=== PATIENT | male | born 1975 | race Caucasian/White ===

== ENCOUNTER 2017-02-07 10:57 | Outpatient (CLI) | payer BC ==
[2017-02-07 12:12] LABS: BASOPHILS % (AUTO) 0.6 % (0.0-2.0); EOSINOPHILS # (AUTO) 0.2 /CMM (0.0-0.7); EOSINOPHILS % (AUTO) 3.3 % (0.0-6.0); HEMATOCRIT 46 % (39-51); HEMOGLOBIN 15.1 g/dL (13.5-17.5); LYMPHOCYTES # (AUTO) 2.7 /CMM (0.8-4.8); LYMPHOCYTES % (AUTO) 48.3 % (20.0-44.0); MEAN CORPUSCULAR HEMOGLOBIN 27 PG (26.0-33.0); MEAN CORPUSCULAR HGB CONC 33 g/dl (31.0-36.0); MEAN CORPUSCULAR VOLUME 84 fL (80-96); MONOCYTES # (AUTO) 0.5 /CMM (0.1-1.30); MONOCYTES % (AUTO) 8.1 % (2.0-12.0); NEUTROPHILS # (AUTO) 2.2 /CMM (1.8-8.9); NEUTROPHILS % (AUTO) 39.7 % (43.0-81.0); PLATELET COUNT (AUTO) 182 /CMM (150-450); RDW COEFFICIENT OF VARIATION 13.5 (11.5-15.0); WHITE BLOOD COUNT (AUTO) 5.6 K/uL (4.3-11.0)
[2017-02-07 12:36] LABS: ALBUMIN 4.1 g/dL (3.4-5.0); BILIRUBIN,TOTAL 0.7 mg/dL (0.2-1.0); CALCIUM, SERUM 8.9 mg/dL (8.5-10.1); CREATININE 0.9 mg/dL (0.6-1.3); POTASSIUM 4.4 mmol/L (3.5-5.1); TOTAL PROTEIN, SERUM 7.6 g/dL (6.4-8.2)
[2017-02-07 12:41] LABS: THYROID STIMULATING HORMONE 1.328 uIU/mL (0.358-3.74)
[2017-02-07 13:54] LABS: APPEARANCE,URINE CLEAR (CLEAR); BILIRUBIN,URINE NEGATIVE (NEGATIVE); BLOOD, URINE NEGATIVE Ery/uL (NEGATIVE); COLOR,URINE DARK YELLO (YELLOW); KETONES,URINE NEGATIVE (NEGATIVE); LEUKOCYTE ESTERASE ,URINE NEGATIVE (NEGATIVE); NITRITE, URINE NEGATIVE (NEGATIVE); PROTEIN,URINE NEGATIVE (NEGATIVE); UGLUCOSE NEGATIVE (NEGATIVE); UROBILINOGEN,URINE 0.2 EU/dL (0.2)
== END 2017-02-07 23:59 | disposition home or self-care (01) ==
LOC: LAB 10:57
PROVIDERS: ATTEND Internal Medicine
DX: Z00.00 Encounter for general adult medical examination without abnormal findings (principal)
CPT/HCPCS: 36415; 80053-TC; 80061-TC; 81000-TC; 84443-TC; 85025-TC

== ENCOUNTER 2018-06-29 09:42 | Outpatient (CLI) | payer BC ==
[2018-06-29 10:54] LABS: BASOPHILS % (AUTO) 0.6 % (0.0-2.0); EOSINOPHILS % (AUTO) 2.3 % (0.0-6.0); HEMATOCRIT 47 % (39-51); HEMOGLOBIN 15.6 g/dL (13.5-17.5); LYMPHOCYTES # (AUTO) 2.7 /CMM (0.8-4.8); LYMPHOCYTES % (AUTO) 47.9 % (20.0-44.0); MEAN CORPUSCULAR HEMOGLOBIN 28 PG (26.0-33.0); MEAN CORPUSCULAR HGB CONC 33 g/dl (31.0-36.0); MEAN CORPUSCULAR VOLUME 85 fL (80-96); MONOCYTES # (AUTO) 0.5 /CMM (0.1-1.30); MONOCYTES % (AUTO) 8.1 % (2.0-12.0); NEUTROPHILS # (AUTO) 2.3 /CMM (1.8-8.9); NEUTROPHILS % (AUTO) 41.1 % (43.0-81.0); PLATELET COUNT (AUTO) 195 /CMM (150-450); RDW COEFFICIENT OF VARIATION 12.5 (11.5-15.0); RED BLOOD CELL COUNT(AUTO) 5.55 MIL/uL (4.5-6.0); WHITE BLOOD COUNT (AUTO) 5.6 K/uL (4.3-11.0)
[2018-06-29 11:18] LABS: URIC ACID 6.6 mg/dL (2.6-7.2)
[2018-06-29 12:18] LABS: BILIRUBIN,TOTAL 0.6 mg/dL (0.2-1.0); CALCIUM, SERUM 8.8 mg/dL (8.5-10.1); CREATININE 0.9 mg/dL (0.6-1.3); TOTAL PROTEIN, SERUM 7.5 g/dL (6.4-8.2)
[2018-07-01 13:11] LABS: CALCITRIOL VIT D,1, 25 DIHYDRO 68.5 pg/mL (19.9-79.3)
== END 2018-06-29 23:59 | disposition home or self-care (01) ==
LOC: RAD 09:42
PROVIDERS: ATTEND Internal Medicine
DX: M17.11 Unilateral primary osteoarthritis, right knee (principal); N52.9 Male erectile dysfunction, unspecified; E78.5 Hyperlipidemia, unspecified
CPT/HCPCS: 36415; 73562; 80053-TC; 80061-TC; 82652; 84403; 84550-TC; 85025-TC

== ENCOUNTER 2018-07-31 09:37 | Outpatient (CLI) | payer BC | END 2018-07-31 23:59 | disposition home or self-care (01) | LOC: MRI 09:37 | PROVIDERS: ATTEND Internal Medicine | DX: S83.511A Sprain of anterior cruciate ligament of right knee, initial encounter (principal); S83.241A Other tear of medial meniscus, current injury, right knee, initial encounter; M25.461 Effusion, right knee; M65.861 Other synovitis and tenosynovitis, right lower leg; M71.21 Synovial cyst of popliteal space [Baker], right knee; M21.161 Varus deformity, not elsewhere classified, right knee; R60.0 Localized edema; X58.XXXA Exposure to other specified factors, initial encounter; Y93.89 Activity, other specified; Y92.89 Other specified places as the place of occurrence of the external cause; Y99.8 Other external cause status | CPT/HCPCS: 73721-TC ==

== ENCOUNTER 2019-05-28 10:41 | Outpatient (CLI) | payer BC ==
[2019-05-28 11:14] LABS: BASOPHILS % (AUTO) 0.6 % (0.0-2.0); EOSINOPHILS % (AUTO) 2.6 % (0.0-6.0); HEMATOCRIT 47 % (39-51); HEMOGLOBIN 15.8 g/dL (13.5-17.5); LYMPHOCYTES # (AUTO) 2.7 /CMM (0.8-4.8); LYMPHOCYTES % (AUTO) 48.7 % (20.0-44.0); MEAN CORPUSCULAR HGB CONC 34 g/dl (31.0-36.0); MEAN CORPUSCULAR VOLUME 85 fL (80-96); MONOCYTES # (AUTO) 0.5 /CMM (0.1-1.30); MONOCYTES % (AUTO) 8.2 % (2.0-12.0); NEUTROPHILS # (AUTO) 2.2 /CMM (1.8-8.9); NEUTROPHILS % (AUTO) 39.9 % (43.0-81.0); PLATELET COUNT (AUTO) 181 /CMM (150-450); WHITE BLOOD COUNT (AUTO) 5.6 K/uL (4.3-11.0)
[2019-05-28 11:30] LABS: APPEARANCE,URINE CLEAR (CLEAR); BILIRUBIN,URINE NEGATIVE (NEGATIVE); BLOOD, URINE NEGATIVE Ery/uL (NEGATIVE); COLOR,URINE YELLOW (YELLOW); KETONES,URINE NEGATIVE (NEGATIVE); LEUKOCYTE ESTERASE ,URINE NEGATIVE (NEGATIVE); NITRITE, URINE NEGATIVE (NEGATIVE); PH,URINE 5.5 (5.0-8.0); PROTEIN,URINE NEGATIVE (NEGATIVE); UGLUCOSE NEGATIVE (NEGATIVE); UROBILINOGEN,URINE 0.2 EU/dL (0.2)
[2019-05-28 11:45] LABS: CHOLESTEROL 176 mg/dL (<200); HDL CHOLESTEROL 36 mg/dL (40-60); LDL 130 mg/dL (0-99); THYROID STIMULATING HORMONE 1.598 uIU/mL (0.358-3.74); TRIGLYCERIDES 60 mg/dL (30-150)
[2019-05-28 11:46] LABS: C-REACTIVE PROTEIN < 0.2 mg/dL (0.0-0.9)
[2019-05-28 12:08] LABS: ALANINE AMINOTRANSFERASE 34 U/L (12-78); ALBUMIN 4.1 g/dL (3.4-5.0); ALKALINE PHOSPHATASE 104 U/L (46-116); ASPARTATE AMINOTRANSFERASE 12 U/L (15-37); BILIRUBIN,TOTAL 0.3 mg/dL (0.2-1.0); CALCIUM, SERUM 9.1 mg/dL (8.5-10.1); CARBON DIOXIDE 22 mmol/L (21-32); CHLORIDE 107 mmol/L (98-107); GLUCOSE 101 mg/dL (74-106); MAGNESIUM 2.1 mg/dL (1.8-2.4); POTASSIUM 4.3 mmol/L (3.5-5.1); SODIUM SERUM 143 mmol/L (136-145); TOTAL PROTEIN, SERUM 7.8 g/dL (6.4-8.2); UREA NITROGEN, BLOOD 16 mg/dL (7-18)
== END 2019-05-28 23:59 | disposition home or self-care (01) ==
LOC: LAB 10:41
DX: Z00.00 Encounter for general adult medical examination without abnormal findings (principal); E78.5 Hyperlipidemia, unspecified
CPT/HCPCS: 36415; 80053-TC; 80061-TC; 81000-TC; 82306; 83735-TC; 84439-TC; 84443-TC; 85025-TC; 85652-TC; 86140-TC

== ENCOUNTER 2019-06-15 10:00 | Outpatient (CLI) | payer BC | END 2019-06-15 23:59 | disposition home or self-care (01) | LOC: MRI 10:00 | PROVIDERS: ATTEND Student in an Organized Health Care Education/Training Program | DX: S83.511D Sprain of anterior cruciate ligament of right knee, subsequent encounter (principal); S83.241D Other tear of medial meniscus, current injury, right knee, subsequent encounter; M17.11 Unilateral primary osteoarthritis, right knee; M76.891 Other specified enthesopathies of right lower limb, excluding foot; M25.461 Effusion, right knee; M65.88 Other synovitis and tenosynovitis, other site; X58.XXXD Exposure to other specified factors, subsequent encounter | CPT/HCPCS: 73721-TC ==

== ENCOUNTER 2020-07-31 23:05 | Emergency (ER) | payer BC ==
[~2020-07-31] VITALS: Ht 175.3 cm; Wt 95.3 kg
[2020-07-31 23:09] VITALS: BP 121/75
== END 2020-07-31 23:44 | disposition home or self-care (01) ==
LOC: ER 23:07
DX: R05 Cough (principal); Z20.828 Contact with and (suspected) exposure to other viral communicable diseases
CPT/HCPCS: 99283; C9803; U0003

== ENCOUNTER 2020-09-19 10:56 | Outpatient (CLI) | payer BC ==
[2020-09-19 11:54] LABS: BILIRUBIN,URINE NEGATIVE (NEGATIVE); BLOOD, URINE NEGATIVE Ery/uL (NEGATIVE); COLOR,URINE YELLOW (YELLOW); LEUKOCYTE ESTERASE ,URINE NEGATIVE (NEGATIVE); NITRITE, URINE NEGATIVE (NEGATIVE); PH,URINE 5.5 (5.0-8.0); PROTEIN,URINE NEGATIVE (NEGATIVE); UGLUCOSE NEGATIVE (NEGATIVE); UROBILINOGEN,URINE 0.2 EU/dL (0.2)
[2020-09-19 12:02] LABS: BASOPHILS % (AUTO) 0.5 % (0.0-2.0); EOSINOPHILS % (AUTO) 1.6 % (0.0-6.0); HEMATOCRIT 48 % (39-51); HEMOGLOBIN 16.1 g/dL (13.5-17.5); LYMPHOCYTES # (AUTO) 2.9 /CMM (0.8-4.8); LYMPHOCYTES % (AUTO) 42.8 % (20.0-44.0); MEAN CORPUSCULAR HGB CONC 33 g/dl (31.0-36.0); MEAN CORPUSCULAR VOLUME 83 fL (80-96); MONOCYTES # (AUTO) 0.5 /CMM (0.1-1.30); MONOCYTES % (AUTO) 6.8 % (2.0-12.0); NEUTROPHILS # (AUTO) 3.3 /CMM (1.8-8.9); NEUTROPHILS % (AUTO) 48.3 % (43.0-81.0); PLATELET COUNT (AUTO) 195 /CMM (150-450); WHITE BLOOD COUNT (AUTO) 6.9 K/uL (4.3-11.0)
[2020-09-19 12:10] LABS: ALBUMIN 4.2 g/dL (3.4-5.0); BILIRUBIN,TOTAL 0.5 mg/dL (0.2-1.0); CALCIUM, SERUM 9.1 mg/dL (8.5-10.1); CREATININE 0.9 mg/dL (0.6-1.3); MAGNESIUM 2.3 mg/dL (1.8-2.4); POTASSIUM 3.9 mmol/L (3.5-5.1); TOTAL PROTEIN, SERUM 8.3 g/dL (6.4-8.2)
[2020-09-19 12:14] LABS: C-REACTIVE PROTEIN 0.9 mg/dL (0.0-0.9); THYROID STIMULATING HORMONE 2.444 uIU/mL (0.358-3.74)
[2020-09-20 08:12] LABS: LUTEINIZING HORMONE 2.4 mIU/mL (1.7-8.6)
== END 2020-09-19 23:59 | disposition home or self-care (01) ==
LOC: RAD 10:56
DX: E78.5 Hyperlipidemia, unspecified (principal); R68.82 Decreased libido; Z00.00 Encounter for general adult medical examination without abnormal findings
CPT/HCPCS: 36415; 71046; 80053-TC; 80061-TC; 82306; 83002; 83735-TC; 84402; 84403; 84443-TC; 85025-TC; 85652-TC; 86140-TC

== ENCOUNTER 2021-05-15 04:05 | Emergency (ER) | payer BC ==
[~2021-05-15] VITALS: Ht 180.3 cm; Wt 98.0 kg
--- NOTE | 2021-05-15 04:11 | NUR ---
PRESENTED TO THE ER FOR C/O HIGH FEVER, WEAKNESS, DRY COUGH AND DIARRHEA X 5 DAYS. REPORTED HAS BEEN ALTERNATING MOTRIN AND TYLENOL FOR TO CONTROL FEVER. 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 NO SOB. AMBULATORY TO BED 5 ER, PRECAUTION ISOLATION IMPLEMENTED. PLACED ON A MONITOR. WILL CONT TO MONITOR
[2021-05-15 04:46] LABS: BASOPHILS # (AUTO) 0.1 K/uL (0.0-0.2); BASOPHILS % (AUTO) 0.5 % (0.0-2.0); EOSINOPHILS % (AUTO) 0.3 % (0.0-6.0); HEMATOCRIT 44 % (39-51); HEMOGLOBIN 14.7 g/dL (13.5-17.5); LYMPHOCYTES # (AUTO) 1.5 K/uL (0.8-4.8); LYMPHOCYTES % (AUTO) 11.3 % (20.0-44.0); MEAN CORPUSCULAR HGB CONC 34 g/dl (31.0-36.0); MEAN CORPUSCULAR VOLUME 84 fL (80-96); MONOCYTES # (AUTO) 1.2 K/uL (0.1-1.30); NEUTROPHILS # (AUTO) 10.5 K/uL (1.8-8.9); NEUTROPHILS % (AUTO) 78.9 % (43.0-81.0); PLATELET COUNT (AUTO) 132 K/uL (150-450); RED BLOOD CELL COUNT(AUTO) 5.23 MIL/uL (4.5-6.0); WHITE BLOOD COUNT (AUTO) 13.3 K/uL (4.3-11.0)
--- NOTE | 2021-05-15 04:54 | NUR ---
RAD AT BED SIDE
[2021-05-15 04:57] LABS: CALCIUM, SERUM 8.5 mg/dL (8.5-10.1); POTASSIUM 3.6 mmol/L (3.5-5.1)
[2021-05-15 05:03] LABS: ALBUMIN 2.8 g/dL (3.4-5.0); BILIRUBIN,DIRECT 0.1 mg/dL (0.0-0.2); BILIRUBIN,TOTAL 0.3 mg/dL (0.2-1.0); TOTAL PROTEIN, SERUM 7.5 g/dL (6.4-8.2)
[2021-05-15 05:21] LABS: BAND % (MANUAL) 3 % (0.0-5.0); NEUTROPHILS % (MANUAL) 73 (42-76)
[2021-05-15 05:22] LABS: BASOPHILS % (MANUAL) 0 % (0.0-2.0); EOSINOPHILS % (MANUAL) 1 % (0-4); LYMPHOCYTES % (MANUAL) 10 % (16-48); MONOCYTES % (MANUAL) 10 % (0-11.0)
[2021-05-15] MEDS ORDERED: CEFTRIAXONE 1GM BAG (ER ONLY) 50 ML IV ONE (05:29)
[2021-05-15] MEDS ORDERED: AZITHROMYCIN 250 MG TABLET ONE (05:30)
[2021-05-15] MEDS ORDERED: CEFTRIAXONE 1GM BAG (ER ONLY) 1 GM/50 ML PIGGYBACK IV ONE (05:30)
[2021-05-15] MEDS ORDERED: AZITHROMYCIN 250 MG TABLET PO ONE (05:30)
[2021-05-15] MEDS ORDERED: AZIT250T13 PO (06:00)
--- NOTE | 2021-05-15 07:12 | NUR ---
PT IS MEDICALLY STABLE FOR D/C PER MD. IV removed. Catheter intact and site benign. Pressure and 4x4 applied to site. No bleeding noted.Patient discharged to home in stable condition. Rx and Written and verbal after care instructions given. Patient verbalizes understanding of instruction.
[2021-05-15 07:13] VITALS: BP 134/69
== END 2021-05-15 07:14 | disposition home or self-care (01) ==
LOC: ER 04:06
DX: J18.9 Pneumonia, unspecified organism (principal); Z20.822 Contact with and (suspected) exposure to COVID-19
CPT/HCPCS: 36415; 71045; 80048; 80076; 85007; 85025; 87426; 96365; 99291; J0696; U0003; C9803

== ENCOUNTER 2021-06-17 05:29 | Emergency (ER) | payer BC ==
[~2021-06-17] VITALS: Ht 180.3 cm; Wt 97.5 kg
[~2021-06-17 05:29] MED LIST: AZIT250T13 PO
[2021-06-17] MEDS ORDERED: ONDANSETRON HCL/PF 4 MG/2 ML VIAL ONE (05:35)
[2021-06-17] MEDS ORDERED: KETOROLAC TROMETHAMINE INJ 30 MG/ML VIAL ONE (05:35)
--- NOTE | 2021-06-17 05:38 | NUR ---
PT BIBWIFE C/O LLQ ABD PAIN AND NAUSEA X3O MIN TOP TRIMMER. PT AAOX4 BREATHING EVENLY AND UNLABORED. PT ATTACHED TO MONITOR AND POX. PT SKIN IS WARM AND DRY. PT GIVEN BLANKET AND CALL LIGHT WITHIN REACH
[2021-06-17 05:45] LABS: BASOPHILS % (AUTO) 0.6 % (0.0-2.0); EOSINOPHILS % (AUTO) 4.1 % (0.0-6.0); HEMATOCRIT 45 % (39-51); LYMPHOCYTES # (AUTO) 4.7 K/uL (0.8-4.8); LYMPHOCYTES % (AUTO) 56.5 % (20.0-44.0); MEAN CORPUSCULAR HGB CONC 34 g/dl (31.0-36.0); MEAN CORPUSCULAR VOLUME 84 fL (80-96); MONOCYTES # (AUTO) 0.5 K/uL (0.1-1.30); MONOCYTES % (AUTO) 5.7 % (2.0-12.0); NEUTROPHILS # (AUTO) 2.7 K/uL (1.8-8.9); NEUTROPHILS % (AUTO) 33.1 % (43.0-81.0); PLATELET COUNT (AUTO) 214 K/uL (150-450); RED BLOOD CELL COUNT(AUTO) 5.29 MIL/uL (4.5-6.0); WHITE BLOOD COUNT (AUTO) 8.3 K/uL (4.3-11.0)
--- NOTE | 2021-06-17 05:47 | NUR ---
PT LEFT FOR CT
[2021-06-17 05:53] LABS: CALCIUM, SERUM 9.2 mg/dL (8.5-10.1); CREATININE 0.9 mg/dL (0.6-1.3); POTASSIUM 3.9 mmol/L (3.5-5.1)
[2021-06-17 05:59] LABS: BILIRUBIN,DIRECT 0.1 mg/dL (0.0-0.2); BILIRUBIN,TOTAL 0.2 mg/dL (0.2-1.0); TOTAL PROTEIN, SERUM 7.7 g/dL (6.4-8.2)
[2021-06-17] MEDS ORDERED: ONDANSETRON HCL/PF 4 MG/2 ML VIAL IVP ONE (06:00)
[2021-06-17] MEDS ORDERED: IV NS 0.9% 1,000 ML BAG IV ONE (06:00)
[2021-06-17] MEDS ORDERED: KETOROLAC TROMETHAMINE INJ 30 MG/ML VIAL IV ONE (06:00)
[2021-06-17] MEDS ORDERED: MORPHINE SULFATE INJ 4 MG/ML DISP.SYRIN ONE (06:18)
--- NOTE | 2021-06-17 06:18 | NUR ---
MD VERBAL ORDER 4MG MORPHINE IV
[2021-06-17] MEDS ORDERED: MORPHINE SULFATE INJ 2 MG/ML DISP.SYRIN IV ONE (06:30)
[2021-06-17 06:50] LABS: BASOPHILS % (MANUAL) 2 % (0.0-2.0); EOSINOPHILS % (MANUAL) 4 % (0-4); LYMPHOCYTES % (MANUAL) 44 % (16-48); MONOCYTES % (MANUAL) 8 % (0-11.0); NEUTROPHILS % (MANUAL) 32 (42-76); REACTIVE LYMPHOCYTES 10 % (0-0)
--- NOTE | 2021-06-17 06:57 | NUR ---
called fredy to have image read
[2021-06-17 07:25] LABS: BILIRUBIN,URINE NEGATIVE (NEGATIVE); COLOR,URINE YELLOW (YELLOW); LEUKOCYTE ESTERASE ,URINE NEGATIVE (NEGATIVE); NITRITE, URINE NEGATIVE (NEGATIVE); PH,URINE 5.5 (5.0-8.0); PROTEIN,URINE NEGATIVE (NEGATIVE); UGLUCOSE NEGATIVE (NEGATIVE); UROBILINOGEN,URINE 0.2 EU/dL (0.2)
--- NOTE | 2021-06-17 07:27 | NUR ---
ASSESSED PT ON BED AWAKE AND ALERT. NOT IN RESPIRATORY DISTRESS, V/S STABLE, KEPT RESTED AND COMFORTABLE. WILL CONTINUE TO MONITOR.
[2021-06-17] MEDS ORDERED: OXYC5CAP18 PO (07:29)
[2021-06-17 07:37] VITALS: BP 122/64
--- NOTE | 2021-06-17 07:37 | NUR ---
IV removed. Catheter intact and site benign. Pressure and 4x4 applied to site. No bleeding noted. Patient discharged to home in stable condition. Written and verbal after care instructions given. Patient verbalizes understanding of instruction.
[2021-06-17 07:45] LABS: BACTERIA,URINE Few /HPF (None Seen); CALCIUM OXALATE CRYSTALS,UR Few /HPF (None Seen); RBC,URINE 21-50 /HPF (0-2); SQUAMOUS EPITHELIAL CELL,UR Few /HPF (None Seen); WBC,URINE 0-2 /HPF (0-3)
== END 2021-06-17 07:38 | disposition home or self-care (01) ==
LOC: ER 05:31
DX: N20.0 Calculus of kidney (principal); Z98.890 Other specified postprocedural states; Z79.899 Other long term (current) drug therapy
CPT/HCPCS: 36415; 74176; 80048; 80076; 81001; 83690; 85007; 85025; 96361; 96374; 96375; 99284; J1885; J2270; J2405; J7030

== ENCOUNTER 2021-08-14 12:09 | Outpatient (CLI) | payer BC ==
[~2021-08-14 12:09] MED LIST changes: +OXYC5CAP18 PO
== END 2021-08-14 23:59 | disposition home or self-care (01) ==
LOC: MRI 12:09
PROVIDERS: ATTEND Internal Medicine
DX: M47.812 Spondylosis without myelopathy or radiculopathy, cervical region (principal); M50.21 Other cervical disc displacement, high cervical region; M48.02 Spinal stenosis, cervical region; M43.12 Spondylolisthesis, cervical region; M25.78 Osteophyte, vertebrae
CPT/HCPCS: 72141-TC

== ENCOUNTER 2021-08-14 15:17 | Emergency (ER) | payer BC, OTHER ==
[~2021-08-14] VITALS: Ht 180.3 cm; Wt 90.7 kg
[2021-08-14 15:20] VITALS: BP 131/85
[2021-08-14] MEDS ORDERED: MORPHINE SULFATE INJ 4 MG/ML DISP.SYRIN ONE (15:30)
[2021-08-14] MEDS: MORPHINE SULFATE INJ 2 MG/ML DISP.SYRIN IM ONE (15:30)
--- NOTE | 2021-08-14 16:08 | NUR ---
Patient discharged to home in stable condition. Written and verbal after care instructions given. Patient verbalizes understanding of instruction.
== END 2021-08-14 16:08 | disposition home or self-care (01) ==
LOC: ER 15:21
DX: M54.2 Cervicalgia (principal); M25.511 Pain in right shoulder; G89.29 Other chronic pain; Z98.890 Other specified postprocedural states
CPT/HCPCS: 96372; 99283; J2270

== ENCOUNTER 2021-09-05 03:14 | Emergency (ER) | payer BC, OTHER ==
[~2021-09-05] VITALS: Ht 180.3 cm; Wt 94.8 kg
--- NOTE | 2021-09-05 03:20 | NUR ---
PT AAOX4. BIBSELF C/O COUGH, FEVER, AND WEAKNESS X 6 DAYS. PLACED IN BED 5 ON CONCRETE PAVING MACHINE OPERATOR AND PULSE OX. AWAITING ER MD FOR EVAL AND ORDERS.
[2021-09-05] MEDS ORDERED: IV NS 0.9% 1,000 ML IV ONE (03:30)
[2021-09-05 03:49] LABS: BASOPHILS % (AUTO) 0.2 % (0.0-2.0); EOSINOPHILS % (AUTO) 0.1 % (0.0-6.0); HEMATOCRIT 46 % (39-51); HEMOGLOBIN 15.3 g/dL (13.5-17.5); LYMPHOCYTES # (AUTO) 1.3 K/uL (0.8-4.8); LYMPHOCYTES % (AUTO) 24.6 % (20.0-44.0); MEAN CORPUSCULAR HGB CONC 34 g/dl (31.0-36.0); MEAN CORPUSCULAR VOLUME 84 fL (80-96); MONOCYTES # (AUTO) 0.6 K/uL (0.1-1.30); MONOCYTES % (AUTO) 12.6 % (2.0-12.0); NEUTROPHILS # (AUTO) 3.2 K/uL (1.8-8.9); NEUTROPHILS % (AUTO) 62.5 % (43.0-81.0); PLATELET COUNT (AUTO) 117 K/uL (150-450); RED BLOOD CELL COUNT(AUTO) 5.48 MIL/uL (4.5-6.0); WHITE BLOOD COUNT (AUTO) 5.2 K/uL (4.3-11.0)
[2021-09-05] MEDS ORDERED: DEXAMETHASONE SOD PHOSPHATE 10 MG/ML VIAL ONE (04:18)
[2021-09-05] MEDS ORDERED: DEXAMETHASONE SOD PHOSPHATE 6 MG in IV D5W 50 ML IV ONE (04:30)
--- NOTE | 2021-09-05 05:40 | NUR ---
REC'D POSITIVE RESULT FOR RAPID COVID. MADE AWARE
[2021-09-05] MEDS ORDERED: DEXA6TAB PO (05:51)
[2021-09-05 05:57] LABS: BILIRUBIN,TOTAL 0.3 mg/dL (0.2-1.0); CALCIUM, SERUM 8.2 mg/dL (8.5-10.1); CREATININE 0.9 mg/dL (0.6-1.3); POTASSIUM 3.8 mmol/L (3.5-5.1); TOTAL PROTEIN, SERUM 7.2 g/dL (6.4-8.2)
[2021-09-05] MEDS ORDERED: KETOROLAC TROMETHAMINE INJ 30 MG/ML VIAL IV ONE (06:00)
[2021-09-05] MEDS ORDERED: KETOROLAC TROMETHAMINE INJ 30 MG/ML VIAL ONE (06:04)
--- NOTE | 2021-09-05 06:48 | NUR ---
Patient discharged to home in stable condition. Written and verbal after care instructions given as well as prescription. Patient verbalizes understanding of instructions. IV line discontinued, gentle pressure applied to site without complication. All V/S stable at discharge.
[2021-09-05 06:53] VITALS: BP 131/84
== END 2021-09-05 06:53 | disposition home or self-care (01) ==
LOC: ER 03:28
DX: U07.1 COVID-19 (principal); J12.82 Pneumonia due to coronavirus disease 2019
CPT/HCPCS: 36415; 71045; 80053; 83605; 83880; 85025; 87040 ×2; 87426; 87804; 96361; 96374; 96375; 99284; C9803 ×2; J1100 ×2; J1885; J7060; U0003

== ENCOUNTER 2021-11-07 21:09 | Emergency (ER) | payer BC, OTHER ==
[~2021-11-07] VITALS: Ht 177.8 cm; Wt 90.7 kg
[~2021-11-07 21:09] MED LIST changes: +DEXA6TAB PO
[2021-11-07 21:18] VITALS: BP 122/84
== END 2021-11-08 00:07 | disposition home or self-care (01) ==
LOC: ER 21:20
DX: Z20.822 Contact with and (suspected) exposure to COVID-19 (principal); Z98.890 Other specified postprocedural states; Z79.899 Other long term (current) drug therapy
CPT/HCPCS: C9803; U0003

== ENCOUNTER 2022-08-26 12:30 | Outpatient (CLI) | payer BC, OTHER ==
[2022-08-26 13:31] LABS: BASOPHILS % (AUTO) 0.1 % (0.0-2.0); EOSINOPHILS % (AUTO) 1.6 % (0.0-6.0); HEMATOCRIT 48 % (39-51); HEMOGLOBIN 15.8 g/dL (13.5-17.5); LYMPHOCYTES # (AUTO) 2.6 K/uL (0.8-4.8); LYMPHOCYTES % (AUTO) 58.8 % (20.0-44.0); MEAN CORPUSCULAR HGB CONC 33 g/dl (31.0-36.0); MEAN CORPUSCULAR VOLUME 84 fL (80-96); MONOCYTES # (AUTO) 0.5 K/uL (0.1-1.30); MONOCYTES % (AUTO) 12.3 % (2.0-12.0); NEUTROPHILS # (AUTO) 1.2 K/uL (1.8-8.9); NEUTROPHILS % (AUTO) 27.2 % (43.0-81.0); PLATELET COUNT (AUTO) 180 K/uL (150-450); RED BLOOD CELL COUNT(AUTO) 5.71 MIL/uL (4.5-6.0); WHITE BLOOD COUNT (AUTO) 4.3 K/uL (4.3-11.0)
[2022-08-26 13:40] LABS: BILIRUBIN,URINE NEGATIVE (NEGATIVE); COLOR,URINE YELLOW (YELLOW); LEUKOCYTE ESTERASE ,URINE NEGATIVE (NEGATIVE); NITRITE, URINE NEGATIVE (NEGATIVE); PROTEIN,URINE NEGATIVE (NEGATIVE); UGLUCOSE NEGATIVE (NEGATIVE); UROBILINOGEN,URINE 0.2 EU/dL (0.2)
[2022-08-26 13:49] LABS: BILIRUBIN,TOTAL 0.5 mg/dL (0.2-1.0); CALCIUM, SERUM 8.9 mg/dL (8.5-10.1); POTASSIUM 3.6 mmol/L (3.5-5.1); TOTAL PROTEIN, SERUM 7.9 g/dL (6.4-8.2)
== END 2022-08-26 23:59 | disposition home or self-care (01) ==
LOC: RAD 12:30
PROVIDERS: ATTEND Internal Medicine
DX: Z00.00 Encounter for general adult medical examination without abnormal findings (principal)
CPT/HCPCS: 36415; 71046; 80053-TC; 85025-TC; 85610-TC; 85730-TC

== ENCOUNTER 2022-08-28 11:43 | Outpatient (CLI) | payer BC ==
[2022-08-28 12:27] LABS: BASOPHILS % (AUTO) 0.2 % (0.0-2.0); EOSINOPHILS % (AUTO) 1.5 % (0.0-6.0); HEMATOCRIT 45 % (39-51); LYMPHOCYTES # (AUTO) 2.5 K/uL (0.8-4.8); LYMPHOCYTES % (AUTO) 49.6 % (20.0-44.0); MEAN CORPUSCULAR HGB CONC 34 g/dl (31.0-36.0); MEAN CORPUSCULAR VOLUME 83 fL (80-96); MONOCYTES # (AUTO) 0.4 K/uL (0.1-1.30); MONOCYTES % (AUTO) 8.4 % (2.0-12.0); NEUTROPHILS % (AUTO) 40.3 % (43.0-81.0); PLATELET COUNT (AUTO) 187 K/uL (150-450); RED BLOOD CELL COUNT(AUTO) 5.41 MIL/uL (4.5-6.0)
== END 2022-08-28 23:59 | disposition home or self-care (01) ==
LOC: LAB 11:43
PROVIDERS: ATTEND Internal Medicine
DX: R79.9 Abnormal finding of blood chemistry, unspecified (principal)
CPT/HCPCS: 36415; 85025-TC

== ENCOUNTER 2022-11-18 11:59 | Outpatient (CLI) | payer BC ==
[2022-11-18 12:45] LABS: BASOPHILS % (AUTO) 0.4 % (0.0-2.0); HEMATOCRIT 46 % (39-51); HEMOGLOBIN 15.3 g/dL (13.5-17.5); LYMPHOCYTES # (AUTO) 2.9 K/uL (0.8-4.8); LYMPHOCYTES % (AUTO) 47.3 % (20.0-44.0); MEAN CORPUSCULAR HGB CONC 33 g/dl (31.0-36.0); MEAN CORPUSCULAR VOLUME 84 fL (80-96); MONOCYTES # (AUTO) 0.4 K/uL (0.1-1.30); MONOCYTES % (AUTO) 6.1 % (2.0-12.0); NEUTROPHILS # (AUTO) 2.7 K/uL (1.8-8.9); NEUTROPHILS % (AUTO) 44.2 % (43.0-81.0); PLATELET COUNT (AUTO) 202 K/uL (150-450); WHITE BLOOD COUNT (AUTO) 6.1 K/uL (4.3-11.0)
[2022-11-18 13:00] LABS: BILIRUBIN,URINE NEGATIVE (NEGATIVE); COLOR,URINE YELLOW (YELLOW); LEUKOCYTE ESTERASE ,URINE NEGATIVE (NEGATIVE); NITRITE, URINE NEGATIVE (NEGATIVE); PROTEIN,URINE NEGATIVE (NEGATIVE); UGLUCOSE NEGATIVE (NEGATIVE); UROBILINOGEN,URINE 0.2 EU/dL (0.2)
[2022-11-18 13:08] LABS: ALBUMIN 3.9 g/dL (3.4-5.0); BILIRUBIN,TOTAL 0.4 mg/dL (0.2-1.0); CALCIUM, SERUM 9.1 mg/dL (8.5-10.1); CREATININE 0.9 mg/dL (0.6-1.3); MAGNESIUM 2.3 mg/dL (1.8-2.4); POTASSIUM 3.7 mmol/L (3.5-5.1); TOTAL PROTEIN, SERUM 7.5 g/dL (6.4-8.2)
[2022-11-18 13:10] LABS: BACTERIA,URINE None seen /HPF (None Seen); RBC,URINE 0-2 /HPF (0-2); SQUAMOUS EPITHELIAL CELL,UR Rare /HPF (None Seen); WBC,URINE 0-2 /HPF (0-3)
[2022-11-18 14:45] LABS: PROSTATE SPECIFIC ANTIGEN SCR 1.2 ng/mL (0.00-4.00)
== END 2022-11-18 23:59 | disposition home or self-care (01) ==
LOC: LAB 11:59
PROVIDERS: ATTEND Internal Medicine
DX: Z01.812 Encounter for preprocedural laboratory examination (principal)
CPT/HCPCS: 36415; 80053-TC; 81001; 83735-TC; 84153-TC; 85025-TC; 85730-TC

== ENCOUNTER 2022-11-22 13:53 | Outpatient (CLI) | payer BC ==
[2022-12-01] MEDS ORDERED: ASPI-992 PO (09:59)
[2022-12-01] MEDS ORDERED: OXYC5CAP18 PO (09:59)
[2022-12-01] MEDS ORDERED: BISA10SU61 RC (09:59)
[2022-12-01] MEDS ORDERED: SENN-175 PO (09:59)
[2022-12-01] MEDS ORDERED: DOCU100C36 PO (09:59)
[2022-12-01] MEDS ORDERED: MAG30ORA PO (09:59)
== END 2022-11-22 23:59 | disposition home or self-care (01) ==
LOC: LAB 13:53
PROVIDERS: ATTEND Specialist
DX: Z01.812 Encounter for preprocedural laboratory examination (principal); Z20.822 Contact with and (suspected) exposure to COVID-19
CPT/HCPCS: U0003; C9803

== ENCOUNTER 2022-11-28 05:25 | Inpatient (IN) | payer BC ==
[~2022-11-28] VITALS: Ht 180.3 cm; Wt 101.6 kg
--- NOTE | 2022-11-28 05:45 | NUR ---
ADMISSION NOTE PATIENT CAME IN UNIT AT AROUND 0539, AMBULATORY, ACCOMPANIED BY . PATIENT IS A/OX4, FARSI SPEAKING. NO S/S OF APPARENT DISTRESS ON ROOM AIR. NO C/O PAIN AT THIS TIME. DENIES ANY ALLERGIES. ONLY HX IS RT. ACL RECONSTRUCTION 5 YRS AGO AND KIDNEY STONE. NEW ID BAND ON PATIENT. IV ACCESS ON LEFT AC #18G ON SALINE LOCK. PATIENT WISHES TO BE FULL CODE. DENIES SMOKING AND DRINKS OCCASIONALLY. BELONGINGS CHECKED AND SIGNED FOR. CONSENTS SIGNED AT THIS TIME. INTACT SKIN ON ASSESSMENT. PATIENT WEIGHS 224 LBS AND IS 5'11". LAST BM YESTERDAY MORNING. PATIENT ORIENTED IN THE UNIT AND THE USE OF CALL LIGHT. IN FOR ELECTIVE RIGHT TOTAL KNEE ARTHROPLASTY WITH DR. MORRELL. CONFIRMED SITE WITH PATIENT. PATIENT HAS BEEN NPO SINCE 2100 LAST NIGHT. AWAITING FOR OR TO COMPETITIVE INTELLIGENCE ANALYST.
[2022-11-28] MEDS ORDERED: BUPIVACAINE 0.5 % PF 150 MG/30 ML VIAL ONE (05:51)
[2022-11-28] MEDS ORDERED: POLYMYXIN B SULFATE 500,000 UNITS ONE (05:51)
--- NOTE | 2022-11-28 06:20 | NUR ---
noc rn note patient taken by 2 OR personnels at this time. Consents signed and in chart. Checklist done.
[2022-11-28] MEDS ORDERED: FENTANYL PF 250MCG/5ML AMPUL ONE (06:30)
[2022-11-28] MEDS ORDERED: MIDAZOLAM HCL 2 MG/2ML VIAL ONE (06:31)
[2022-11-28] MEDS ORDERED: FAMOTIDINE/PF INJ 20 MG/2 ML VIAL IV ONE (06:31)
[2022-11-28] MEDS ORDERED: HYDROMORPHONE INJ 2 MG/ML DISP.SYRIN ONE (06:31)
[2022-11-28] MEDS ORDERED: SUCCINYLCHOLINE CHLORIDE 20 MG/ML VIAL ONE (06:32)
[2022-11-28] MEDS ORDERED: TRANEXAMIC ACID 3,000 MG in SODIUM CHLORIDE IRRIG SOLUTION 70 ML IR ONE (07:00)
--- NOTE | 2022-11-28 07:23 | NUR ---
noc rn closing note Patient still in OR at this time. Will endorse to GARCIA Bedolla for continuity of patient care.
--- NOTE | 2022-11-28 08:02 | NUR ---
MS RN NOTE RECEIVED VERBAL REPORT FROM OUTGOING NURSE, PATIENT STILL AT OR.
[2022-11-28] MEDS ORDERED: DOCUSATE SODIUM 250 MG CAPSULE PO PRN (10:00)
[2022-11-28] MEDS ORDERED: ACETAMINOPHEN 325 MG TABLET PO PRN (10:00)
[2022-11-28] MEDS ORDERED: ZOLPIDEM TARTRATE 5 MG TABLET PO PRN (10:00)
[2022-11-28] MEDS ORDERED: HYDROCODONE/APAP 5/325MG TABLET PO PRN (10:00)
[2022-11-28] MEDS ORDERED: BISACODYL SUPP (10 MG) 10 MG/SUPP.RECT SUPP.RECT RC PRN (10:00)
[2022-11-28] MEDS ORDERED: SENNOSIDES 8.6 MG TABLET PO PRN (10:00)
[2022-11-28] MEDS ORDERED: ONDANSETRON HCL/PF 4 MG/2 ML VIAL IVP PRN (10:00)
[2022-11-28] MEDS ORDERED: HYDROMORPHONE 1 MG/1 ML DISP.SYRIN ONE (10:07)
[2022-11-28] MEDS ORDERED: ANESTHESIA TRAY IN PYXIS 1 EA TRAY MC ONE (10:31)
--- NOTE | 2022-11-28 10:35 | NUR ---
MS RN NOTE BACK FROM OR. PATIENT TRANSPORTED VIA BED ACCOMPANIED BY 2 NURSES. PATIENT IS SLEEPY BUT EASILY WOKEN UP. PATIENT IS ALERT AND ORIENTED X 4. WITH AT BEDSIDE. PATIENT ON ROOM AIR WITH EQUAL AND UNLABORED BREATHING WITH NO SIGNS OF RESPIRATORY DISTRESS. PATIENT FLAT ON BED HAD SPINAL ANESTHETICS, WITH SOME DEGREE OF DISCOMFORT, HE WAS GIVEN HYDROMORPHONE 0.3 AT 1012H. WITH IV ACCESS ON THE LEFT AC G 18, ON SALINE LOCK, PATENT AND INTACT. MD ORDERS REVIEWED AND CARRIED OUT. VITAL SIGNS WNL. WITH KEYS CATHETER WITH URINE DRAINING TO URINE BAG VIA GRAVITY. WITH ELASTIC BANDAGE ON THE RIGHT LOWER EXTREMITY, DRY AND INTACT. SAFETY MEASURES ENSURED WITH BED ON LOWEST LOCKED POSITION, ALARM ON AND SIDERAILS RAISED. CALL LIGHT WITHIN REACH AT ALL TIMES. IN STABLE CONDITION. WILL CONTINUE WITH PLAN OF CARE.
[2022-11-28] MEDS: IV D5/0.45 NACL 1,000 ML IV PRN ×2 (11:14→21:18)
[2022-11-28] MEDS ORDERED: HYDROMORPHONE INJ 2 MG/ML DISP.SYRIN IV STA (13:20)
[2022-11-28] MEDS: ANCEF 1 GM/50 ML D5W IV SCH ×4 (15:48→23:19)
[2022-11-28 16:31] VITALS: BP 144/70
[2022-11-28] MEDS: DOCUSATE SODIUM 100 MG CAPSULE PO SCH (17:45)
[2022-11-28] MEDS: SENNOSIDES 8.6 MG TABLET PO SCH (17:45)
[2022-11-28] MEDS: oxyCODONE IR immediate release 5 MG PO PRN ×2 (17:46→21:17)
[2022-11-28] MEDS: HYDROMORPHONE 1 MG/1 ML DISP.SYRIN IV PRN (18:57)
--- NOTE | 2022-11-28 19:00 | NUR ---
MS GARCIA CLOSING NOTE PATIENT IS ALERT AND ORIENTED X 4. WITH AT BEDSIDE. PATIENT ON ROOM AIR WITH EQUAL AND UNLABORED BREATHING WITH NO SIGNS OF RESPIRATORY DISTRESS. WITH IV ACCESS ON THE LEFT AC G 18, WITH ONGOING IVF OF D5 1/2 NS AT 125ML/HR INFUSING WELL. WITH KEYS CATHETER WITH URINE DRAINING TO URINE BAG VIA GRAVITY. WITH ELASTIC BANDAGE ON THE RIGHT LOWER EXTREMITY, DRY AND INTACT. SAFETY MEASURES ENSURED WITH BED ON LOWEST LOCKED POSITION, ALARM ON AND SIDERAILS RAISED. CALL LIGHT WITHIN REACH AT ALL TIMES. IN STABLE CONDITION. WILL ENDORSE TO NEXT SHIFT FOR CONTINUITY OF CARE. Addendum: 11/28/22 at 1946 by FLASH DEE RN PAIN MEDICATION GIVEN ORDERED. IN STABLE CONDITION.
[2022-11-28 20:00] VITALS: BP 126/84
[2022-11-29] MEDS: oxyCODONE IR immediate release 5 MG PO PRN ×6 (00:02→23:01)
[2022-11-29] MEDS: HYDROMORPHONE 1 MG/1 ML DISP.SYRIN IV PRN (02:35)
[2022-11-29] MEDS: IV D5/0.45 NACL 1,000 ML IV PRN ×2 (05:31→16:07)
[2022-11-29 05:53] LABS: HEMOGLOBIN 13.5 g/dL (13.5-17.5)
--- NOTE | 2022-11-29 06:09 | NUR ---
END OF SHIRT REPORT Patient in bed, A/O x4. Left Antecubital IV intact, IVF continuous. No appetite to eat, encouraged fluids. Right knee incision dressing dry, no bleeding. Pain managed with OXY IR and Dilaudid IV, ice pack to right knee. Brief desaturation 89% in RA, improved immediately 95% in 2L NC. Encouraged early ambulation as tolerated and PO pain medication vs IV pain medication indication and possible side effect, patient verbalized understanding. Knutson cath intact, output . Fall precaution maintained. Will endorse to oncoming RN.
--- NOTE | 2022-11-29 06:42 | NUR ---
NEW ORDER Received phone call from Dr. Rodriguez. MD updated with patient response to pain medication IV Dilaudid. Informed MD had episode of desaturation 89% in RA after IV Dilaudid 1mg. New order IV Dilaudid 0.5mg q3H PRN for severe pain. informed, verbalized understanding. Patient encouraged to use IS while awake.
[2022-11-29] MEDS ORDERED: HYDROMORPHONE 1 MG/1 ML DISP.SYRIN IV PRN (07:00)
--- NOTE | 2022-11-29 07:19 | NUR ---
MS RN OPENING NOTE PATIENT IS ALERT AND ORIENTED X 4. WITH AT BEDSIDE. PATIENT ON OXYGEN AT 2LPM VIA NASAL CANULA WITH EQUAL AND UNLABORED BREATHING WITH NO SIGNS OF RESPIRATORY DISTRESS, SATURATING AT 96%. WITH IV ACCESS ON THE LEFT AC G 18, WITH ONGOING IVF OF D5 1/2 NS AT 125ML/HR INFUSING WELL. WITH SOME DISCOMFORT ON THE RIGHT KNEE 12/20, PATIENT RECEIVED DILAUDID 0.5MG AT 0703. HEALTH TEACHING DONE REGARDING PAIN MANAGEMENT. WITH KEYS CATHETER WITH URINE DRAINING TO URINE BAG VIA GRAVITY. WITH ELASTIC BANDAGE ON THE RIGHT LOWER EXTREMITY, DRY AND INTACT. SAFETY MEASURES ENSURED WITH BED ON LOWEST LOCKED POSITION, ALARM ON AND SIDERAILS RAISED. CALL LIGHT WITHIN REACH AT ALL TIMES. IN STABLE CONDITION. WILL ENDORSE TO NEXT SHIFT FOR CONTINUITY OF CARE.
[2022-11-29 08:41] VITALS: BP 138/87
[2022-11-29] MEDS: ASPIRIN 325 MG TABLET PO SCH (09:17)
[2022-11-29] MEDS: SENNOSIDES 8.6 MG TABLET PO SCH ×2 (09:17→17:47)
[2022-11-29] MEDS: DOCUSATE SODIUM 100 MG CAPSULE PO SCH ×2 (09:18→17:47)
--- NOTE | 2022-11-29 12:06 | NUR ---
MS RN NOTE PT DONE AND ABLE TO TOLERATE PT. PATIENT NOW ON CPM MACHINE BUT WITH LIMITED RANGE. PATIENT RESTING COMFORTABLE IN BED NOW. HOOKED BACK TO OXYGEN IN STABLE CONDITION.
[2022-11-29 16:09] VITALS: BP 138/79
--- NOTE | 2022-11-29 19:00 | NUR ---
MS RN CLOSING NOTE PATIENT IS ALERT AND ORIENTED X 4. WITH AT BEDSIDE. PATIENT ON OXYGEN AT 2LPM VIA NASAL CANULA WITH EQUAL AND UNLABORED BREATHING WITH NO SIGNS OF RESPIRATORY DISTRESS, SATURATING AT 96%. WITH IV ACCESS ON THE LEFT AC G 18, WITH ONGOING IVF OF D5 1/2 NS AT 125ML/HR INFUSING WELL. WITH ELASTIC BANDAGE ON THE RIGHT LOWER EXTREMITY, DRY AND INTACT. SAFETY MEASURES ENSURED WITH BED ON LOWEST LOCKED POSITION, ALARM ON AND SIDERAILS RAISED. CALL LIGHT WITHIN REACH AT ALL TIMES. IN STABLE CONDITION. WILL ENDORSE TO NEXT SHIFT FOR CONTINUITY OF CARE.
--- NOTE | 2022-11-29 19:30 | NUR ---
RN Opening Notes Received pt in bed, awake, with at bedside, watching TV. AOx4, able to make needs known. On RA and tolerating well. No SOB noted. No s/sx of respiratory distress noted. IV access in LAC #18G running D51/2NS @ 125 ml/hr. Safety precautions in place: bed in lowest, locked position, siderails upX2, and brakes on. Table and call light within reach. All needs met at this time.
--- NOTE | 2022-11-29 19:32 | NUR ---
RN NOTES Administered oxycodone IR for pain per MD order. VS WNL.
--- NOTE | 2022-11-29 19:38 | NUR ---
RN Notes Went to administer oxycodone. Dr. Rodriguez in room assessing and educating patient, Per patient, I only want one tablet. Per Dr. Rodriguez, "I will change order." Returned 3 oxycodone pills with GARCIA Mark. Awaiting new orders.
[2022-11-29] MEDS ORDERED: oxyCODONE IR immediate release 5 MG PO ONE (19:48)
[2022-11-29 20:00] VITALS: BP 142/80
[2022-11-29] MEDS ORDERED: MAGNESIUM CITRATE 296 ML BOTTLE PO PRN (20:00)
[2022-11-29] MEDS ORDERED: MAG HYDROX/AL HYDROX/SIMETH 30 ML UDC PO PRN (20:00)
[2022-11-29] MEDS ORDERED: diphenhydrAMINE HCL 25 MG CAPSULE PO PRN (20:00)
--- NOTE | 2022-11-29 20:15 | NUR ---
RN Notes Administered oxycodone 5 mg per MD order per pt request. VS WNL.
[2022-11-29] MEDS: FAMOTIDINE (20 MG) 20 MG TABLET PO SCH (20:59)
[2022-11-29] MEDS ORDERED: SENNOSIDES 8.6 MG TABLET PO SCH (22:00)
--- NOTE | 2022-11-29 23:01 | NUR ---
RN Notes Administered oxycodone 10 mg per MD order per pt request. VS WNL.
[2022-11-30] MEDS: oxyCODONE IR immediate release 5 MG PO PRN ×3 (06:11→16:29)
--- NOTE | 2022-11-30 06:11 | NUR ---
RN Notes Administered oxycodone 10 mg per MD order per pt request. VS WNL.
--- NOTE | 2022-11-30 06:43 | NUR ---
RN Closing Notes Pt in bed, asleep, awake with at bedside, watching TV. AOx4, lethargic but able to make needs known. On RA and tolerating well. No SOB noted. No s/sx of respiratory distress noted. IV access in LAC #18G. IV is intact, patent, and flushing well. All orders carried out. All needs met. Pt kept clean and dry. Safety precautions in place: bed in lowest, locked position, siderails upX2, and brakes on. Table and call light within reach. Will endorse to oncoming shift for LUDWIN.
--- NOTE | 2022-11-30 07:20 | NUR ---
ms rn received on bed, awake,alert,orientedx4,s/p right knee arthroplasty, dressing dry and intact,denies pain at this time, at bedside,went back to sleep,all needs attended.
[2022-11-30 08:00] VITALS: BP 132/78
[2022-11-30] MEDS: DOCUSATE SODIUM 100 MG CAPSULE PO SCH ×2 (09:28→17:40)
[2022-11-30] MEDS: ASPIRIN 325 MG TABLET PO SCH (09:29)
[2022-11-30] MEDS: SENNOSIDES 8.6 MG TABLET PO SCH ×2 (09:29→17:41)
[2022-11-30] MEDS: FAMOTIDINE (20 MG) 20 MG TABLET PO SCH ×2 (09:29→22:23)
--- NOTE | 2022-11-30 09:48 | NUR ---
ms rn patient sleeping ,will give meds later.
--- NOTE | 2022-11-30 13:00 | NUR ---
ms rn patient's temp 100 degrees, encourage to drink more water.
[2022-11-30 16:00] VITALS: BP 109/78
--- NOTE | 2022-11-30 18:35 | NUR ---
ms rn on bed, no distress noted, medicated for pain
[2022-11-30 20:00] VITALS: BP 115/70
[2022-12-01] MEDS: oxyCODONE IR immediate release 5 MG PO PRN ×4 (04:02→19:56)
--- NOTE | 2022-12-01 06:14 | NUR ---
END OF SHIRT REPORT Patient in bed, A/O x4. Right knee incision dressing dry, no bleeding. Pain controlled with OXY IR, ice machine to right knee. No acute respiratory distress during the shift. Oxygen sat mid 90's in RA. Encouraged ambulation, WBAT RLE. Fall precaution maintained. Plan for dc to SNF/[facility]. Will endorse to oncoming RN.
--- NOTE | 2022-12-01 07:15 | NUR ---
MS RN OPENING NOTES RECEIVED PATIENT SLEEPING IN BED, AOX4, EASILY AWAKEN, ON ROOM AIR WITHOUT ANY DIFFICULTY, SATURATING AT 98%,. ABLE TO MAKE NEEDS KNOWN, COMPLAINS OF SLIGHT DISCOMFORT ON THE RIGHT KNEE BUT WANTS TO HOLD OFF ON PAIN MEDICATION FOR NOW. RIGHT KNEE INCISION DRESSING, DRY, NOT BLEEDING NOTED, ENCOURAGED WBAT ON RLE AND AMBULATION TODAY. SAFETY MEASURES IN PLACE: BED LOCKED AND IN LOWEST POSITION, SIDE RAILS UP X2, TRAY TABLE AND CALL LIGHT ARE WITHIN EASY REACH. FOR DISCHARGE TODAY TO [facility], IS AT BEDSIDE. WILL CONTINUE TO MONITOR PATIENT.
[2022-12-01] MEDS: FAMOTIDINE (20 MG) 20 MG TABLET PO SCH (09:25)
[2022-12-01] MEDS: SENNOSIDES 8.6 MG TABLET PO SCH ×2 (09:25→17:00)
[2022-12-01] MEDS: ASPIRIN 325 MG TABLET PO SCH (09:25)
[2022-12-01] MEDS: DOCUSATE SODIUM 100 MG CAPSULE PO SCH ×2 (09:25→17:00)
[2022-12-01] MEDS ORDERED: SENN-175 PO (09:59)
[2022-12-01] MEDS ORDERED: BISA10SU61 RC (09:59)
[2022-12-01] MEDS ORDERED: ASPI-992 PO (09:59)
[2022-12-01] MEDS ORDERED: DOCU100C36 PO (09:59)
[2022-12-01] MEDS ORDERED: MAG30ORA PO (09:59)
[2022-12-01] MEDS ORDERED: OXYC5CAP18 PO (09:59)
--- NOTE | 2022-12-01 12:00 | NUR ---
RN NOTES - PAIN MANAGEMENT FOR 8-9/10 PAIN RIGHT KNEE PAIN. ADMINISTERED OXY 10 PER MD ORDER, VS STABLE WNL.
--- NOTE | 2022-12-01 15:55 | NUR ---
RN NOTES - PAIN MANAGEMENT AGAIN FOR 8-06/22 PAIN RIGHT KNEE PAIN. ADMINISTERED OXY 10 PER MD ORDER, VS STABLE WNL.
--- NOTE | 2022-12-01 19:10 | NUR ---
MS RN CLOSING NOTES PATIENT SLEEPING IN BED WITH AT BEDSIDE, AOX4, EASILY AWAKEN, ON ROOM AIR WITHOUT ANY DIFFICULTY, SATURATING AT 98%,. ABLE TO MAKE NEEDS KNOWN. NO COMPLAINTS OF PAIN AT THE MOMENT - CONTROLLED BY PAIN MEDS. RIGHT KNEE INCISION DRESSING, DRY, NOT BLEEDING NOTED. FOR DISCHARGE TO [facility] AT 1930, REPORT CALLED TO GARCIA REHMAN. SAFETY MEASURES MAINTAINED: BED LOCKED AND IN LOWEST POSITION, SIDE RAILS UP X2, TRAY TABLE AND CALL LIGHT ARE WITHIN EASY REACH. ENDORSED TO ENGINE INSPECTOR.
--- NOTE | 2022-12-01 20:14 | NUR ---
RN NOTES PATIENT WAS GIVEN OXYCODONE IR 5MG. PATIENT WAS TRANSPORTED @ 8:17PM. PATIENT LEFT THE UNIT IN STABLE CONDITION.
== END 2022-12-01 20:13 | DRG 469 ==
LOC: DS 05:25 → MED 05:27
PROVIDERS: ADMIT Internal Medicine; ATTEND Internal Medicine
PROC: 0SRC0J9 Replacement of Right Knee Joint with Synthetic Substitute, Cemented, Open Approach (ICD-10-PCS; principal; 2022-11-28)
DX: M17.11 Unilateral primary osteoarthritis, right knee (principal); J96.01 Acute respiratory failure with hypoxia; G47.33 Obstructive sleep apnea (adult) (pediatric); F41.9 Anxiety disorder, unspecified; E66.9 Obesity, unspecified; Z68.31 Body mass index [BMI] 31.0-31.9, adult; Z87.828 Personal history of other (healed) physical injury and trauma
CPT/HCPCS: 36415; 85027-TC; 97110-TC; 97116-TC; 97530-TC; 97760-TC; A4217; A4223; C1713; C1776; G0378; J0330; J0690; J1170; J2250; J2405; J2704; J2765; J3010; J3490; J7030; J7060; L1830

== ENCOUNTER 2022-12-19 04:05 | Emergency (ER) | payer BC, OTHER ==
[~2022-12-19] VITALS: Ht 180.3 cm; Wt 97.5 kg
[~2022-12-19 04:05] MED LIST changes: +ASPI-992 PO; -AZIT250T13 PO; +BISA10SU61 RC; -DEXA6TAB PO; +DOCU100C36 PO; +MAG30ORA PO; +SENN-175 PO
--- NOTE | 2022-12-19 04:07 | NUR ---
BIBWIFE FROM HOME C/O R LOWER EXT EDEMA SINCE YESTERDAY. S/P R THIGH SURGERY LAST WEEK. PT A/OX4. TOLERATING R/A WELL WITH NO RESP DISTRESS. PT IN GOWN. SAFETY MEASURES IN PLACE.
--- NOTE | 2022-12-19 05:25 | NUR ---
US tech at pt's bedside
[2022-12-19 07:08] VITALS: BP 131/73
== END 2022-12-19 07:08 | disposition home or self-care (01) ==
LOC: ER 04:08
DX: R60.9 Edema, unspecified (principal); Z87.442 Personal history of urinary calculi; Z79.899 Other long term (current) drug therapy
CPT/HCPCS: 93971-TC

== ENCOUNTER 2023-02-11 09:46 | Outpatient (CLI) | payer BC, OTHER ==
[2023-02-11 12:21] LABS: BASOPHILS % (AUTO) 0.3 % (0.0-2.0); BILIRUBIN,URINE NEGATIVE (NEGATIVE); COLOR,URINE YELLOW (YELLOW); EOSINOPHILS % (AUTO) 1.9 % (0.0-6.0); HEMATOCRIT 48 % (39-51); HEMOGLOBIN 15.1 g/dL (13.5-17.5); LEUKOCYTE ESTERASE ,URINE NEGATIVE (NEGATIVE); LYMPHOCYTES # (AUTO) 2.9 K/uL (0.8-4.8); LYMPHOCYTES % (AUTO) 41.9 % (20.0-44.0); MEAN CORPUSCULAR HGB CONC 32 g/dl (31.0-36.0); MEAN CORPUSCULAR VOLUME 85 fL (80-96); MONOCYTES # (AUTO) 0.5 K/uL (0.1-1.30); MONOCYTES % (AUTO) 7.5 % (2.0-12.0); NEUTROPHILS # (AUTO) 3.3 K/uL (1.8-8.9); NEUTROPHILS % (AUTO) 48.4 % (43.0-81.0); NITRITE, URINE NEGATIVE (NEGATIVE); PLATELET COUNT (AUTO) 225 K/uL (150-450); PROTEIN,URINE NEGATIVE (NEGATIVE); RED BLOOD CELL COUNT(AUTO) 5.59 MIL/uL (4.5-6.0); UGLUCOSE NEGATIVE (NEGATIVE); UROBILINOGEN,URINE 0.2 EU/dL (0.2); WHITE BLOOD COUNT (AUTO) 6.9 K/uL (4.3-11.0)
[2023-02-11 12:38] LABS: BACTERIA,URINE Rare /HPF (None Seen); RBC,URINE 0-2 /HPF (0-2); SQUAMOUS EPITHELIAL CELL,UR Few /HPF (None Seen); WBC,URINE 0-2 /HPF (0-3)
[2023-02-11 12:50] LABS: ALBUMIN 3.9 g/dL (3.4-5.0); BILIRUBIN,TOTAL 0.3 mg/dL (0.2-1.0); CALCIUM, SERUM 9.7 mg/dL (8.5-10.1); CREATININE 0.9 mg/dL (0.6-1.3); POTASSIUM 4.1 mmol/L (3.5-5.1); TOTAL PROTEIN, SERUM 8.3 g/dL (6.4-8.2)
== END 2023-02-11 23:59 | disposition home or self-care (01) ==
LOC: LAB 09:46
PROVIDERS: ATTEND Specialist
DX: Z01.818 Encounter for other preprocedural examination (principal); Z20.822 Contact with and (suspected) exposure to COVID-19
CPT/HCPCS: 85025; 83036; 81001; 36415; 80053; 85730; U0003; C9803

== ENCOUNTER 2023-02-17 05:32 | Day surgery (SDC) | payer BC, OTHER ==
[~2023-02-17] VITALS: Ht 180.3 cm; Wt 98.4 kg
[2023-02-17] MEDS ORDERED: BUPIVACAINE 0.25% 75 MG/30 ML VIAL ONE (06:11)
[2023-02-17] MEDS ORDERED: LIDOCAINE 1% INJ 50 ML MDV IJ ONE (06:11)
[2023-02-17] MEDS ORDERED: methylPREDNISolone ACETATE 80 MG/ML VIAL ONE (06:18)
[2023-02-17] MEDS ORDERED: MIDAZOLAM HCL 2 MG/2ML VIAL ONE (06:27)
--- NOTE | 2023-02-17 07:20 | NUR ---
MS RN OPENING NOTES RECEIVED PATIENT FROM HOME FOR DAY SURGERY. PATIENT AMBULATORY. PATIENT IS A/O TIMES 4. ABLE TO MAKE NEEDS KNOWN . WITH THE PATIENT. NO PAIN NOTED. NO SOB NOTED. NO DISTRESS NOTED. ON ROOM AIR. IV ACCESS STARTED AT LAC G # 20. INTACT AND PATENT AND FLUSHING WELL. ALL THE CONSENTS SIGNED FOR SURGERY. PATIENT NPO SINCE 02/16/23 AT 2200. VITAL SIGNS IN NORMAL RANGES. ALL THE BELONGINGS ACCOUNTED AND SIGNED FOR. FIORELLA FROM OR PICKED UP THE PATIENT AT 0610. PATIENT LEFT UNIT AT 0610 TO GO TO OR. WILL ENDORSE TO INCOMING SHIFT NURSE FOR LUDWIN.
[2023-02-17] MEDS ORDERED: HYDROMORPHONE 1 MG/1 ML DISP.SYRIN ONE (07:32)
[2023-02-17 08:00] VITALS: BP 131/78
--- NOTE | 2023-02-17 08:44 | NUR ---
"PATIENT IS S/P R KNEE MANIPULATION UNDER ANESTHESIA WITH INTRA ARTICULAR INJECTION. DRESSING C/D/I. VSS, AFEBRILE. BP 131/78 | KS 66 | RR 18 | T 97.7 | Sa02 98%. PATIENT REFUSED TO GET DISCHARGE SUMMARY/PAPER WORK. PATIENT WAS PICKED UP BY HIS . DISCHARGE INSTRUCTIONS AND HEALTH TEACHINGS GIVEN, PT VERBALIZED UNDERSTANDING."
== END 2023-02-17 18:00 | disposition home or self-care (01) ==
LOC: DS 05:32 → UNDOADMIN 05:38 → MED 05:38 → UNDODISIN 08:50 → DS 18:00
PROVIDERS: ATTEND Specialist
DX: T84.82XA Fibrosis due to internal orthopedic prosthetic devices, implants and grafts, initial encounter (principal); Y79.3 Surgical instruments, materials and orthopedic devices (including sutures) associated with adverse incidents; Z96.651 Presence of right artificial knee joint
CPT/HCPCS: 27570; 87081; J2704; J3490 ×2; J7030; J2250; J1170; G0378; J1040

== ENCOUNTER 2025-09-20 03:09 | Emergency (ER) | payer BC, OTHER ==
[~2025-09-20] VITALS: Ht 180.3 cm; Wt 108.9 kg
[2025-09-20] MEDS ORDERED: MORPHINE SULFATE INJ 4 MG/ML DISP.SYRIN ONE (03:15)
[2025-09-20] MEDS ORDERED: TAMSULOSIN 0.4 MG CAP.SR.24H ONE (03:17)
[2025-09-20] MEDS ORDERED: ONDANSETRON HCL/PF 4 MG/2 ML VIAL ONE (03:17)
[2025-09-20] MEDS: IV NS 0.9% 1,000 ML BAG IV ONE (03:18)
[2025-09-20] MEDS: MORPHINE SULFATE INJ 2 MG/ML DISP.SYRIN IV ONE (03:20)
[2025-09-20] MEDS: TAMSULOSIN 0.4 MG CAP.SR.24H PO ONE (03:21)
[2025-09-20] MEDS: ONDANSETRON HCL/PF 4 MG/2 ML VIAL IV ONE (03:21)
[2025-09-20 03:28] LABS: PLATELET COUNT (AUTO) 180 K/uL (150-450); RED BLOOD CELL COUNT(AUTO) 5.82 MIL/uL (4.5-6.0); RED CELL DISTRIBUTION WIDTH 13.5 % (11.5-15.0); WHITE BLOOD COUNT (AUTO) 7.6 K/uL (4.3-11.0)
[2025-09-20 03:35] LABS: CALCIUM, SERUM 8.8 mg/dL (8.5-10.1); CREATININE 0.9 mg/dL (0.6-1.3); SODIUM SERUM 142.0 mmol/L (136-145); UREA NITROGEN, BLOOD 20.0 mg/dL (7-18)
[2025-09-20 03:40] LABS: ASPARTATE AMINOTRANSFERASE 22.0 U/L (15-37); TOTAL PROTEIN, SERUM 7.8 g/dL (6.4-8.2)
[2025-09-20 03:41] LABS: APPEARANCE,URINE CLEAR (CLEAR); BLOOD, URINE 3+ Ery/uL (NEGATIVE); LEUKOCYTE ESTERASE ,URINE NEGATIVE (NEGATIVE); NITRITE, URINE NEGATIVE (NEGATIVE); UGLUCOSE NEGATIVE (NEGATIVE)
[2025-09-20 03:48] LABS: ADD URINE CULTURE NO; SQUAMOUS EPITHELIAL CELL,UR Rare /HPF (None Seen)
[2025-09-20] MEDS ORDERED: TAMS-12 PO (04:04)
[2025-09-20] MEDS ORDERED: NAPR-1069 PO (04:04)
[2025-09-20] MEDS ORDERED: ACET-3102 PO (04:04)
[2025-09-20] MEDS ORDERED: ONDA4TAB5 PO (04:04)
[2025-09-20 06:30] VITALS: TEMP 97.8
[2025-09-20 07:08] VITALS: BP 129/77; O2SAT 98
== END 2025-09-20 07:29 | disposition home or self-care (01) ==
LOC: ER 03:12
DX: N20.0 Calculus of kidney (principal); R10.32 Left lower quadrant pain; R06.02 Shortness of breath; Z79.82 Long term (current) use of aspirin; Z87.442 Personal history of urinary calculi; Z98.890 Other specified postprocedural states; Z79.899 Other long term (current) drug therapy
CPT/HCPCS: 99285; 74176; 96374; 96361; 96375; 84145; 85025; 83735; 81001; 36415; 80053; 86140; J2270; J2405